=== PATIENT | male | born 1985 | race Caucasian/White ===

== ENCOUNTER → 2024-09-28 09:47 | Outpatient (BNVA) | payer OTHER, SELFPAY | PROVIDERS: Visit Provider Internal Medicine | DX: N50.89 Other specified disorders of the male genital organs (principal) | CPT/HCPCS: 76870; 93975; 99204 ==

== ENCOUNTER → 2024-10-03 07:52 | Outpatient (BNVA) | payer OTHER, SELFPAY | PROVIDERS: Visit Provider Internal Medicine | DX: N45.1 Epididymitis (principal); Z02.79 Encounter for issue of other medical certificate | CPT/HCPCS: 99213 ==